=== PATIENT | female | born 1985 | race Caucasian/White ===

== ENCOUNTER 2023-10-18 00:18 | Emergency (ER) | payer OTHER, SELFPAY ==
[2023-10-18] VITALS (9 sets, daily range): BP systolic 110; BP diastolic 87; PULSE 72–103; RESP 15–16; TEMP 36.4; O2SAT 94–100; BMI 28.3
--- NOTE | 2023-10-18 00:24 | ED_ITS ---
HPI - Abdominal Pain 2 General: Chief Complaint: Abdominal Pain Stated Complaint: abd pain Time Seen by Provider: 10/18/23 00:19 Source: patient Mode of arrival: ambulatory Limitations: no limitations History of Present Illness: 38-year-old female states she been havin g lower abdominal pain has been crampy in nature of the last 4 hours states she is also had vomiting and diarrhea with this. She denies any worse improved factors she denies any fever she rates her pain a 5 out of 10 currently. Associated Symptoms: Reports diarrhea, nausea and vomiting; Denies chills, dysuria and fever(s) Review of Systems 2 Const: Denies: fever(s), chills, body aches or change in appetite ENMT: Denies: throat pain or dental pain Card: Denies: chest pain Resp: Denies: dyspnea GI: Reports: abdominal pain, nausea, vomiting and diarrhea : Denies: dysuria Musc: Denies: neck pain or back pain Skin/Breast: Denies: rash Neuro: Denies: headache(s) Physical Exam 2 Const: COMMON NORMALS: no acute distress, patient oriented x3 and healthy appearing HENMT: COMMON NORMALS: normocephalic and atraumatic HEAD & SCALP: n ormocephalic and atraumatic Eye: COMMON NORMALS: conjunctivae normal CONJUNCTIVA: Yes conjunctivae normal Neck/C-Spine: COMMON NORMALS: full ROM and supple Chest: COMMONS NORMALS: normal inspection of the chest Resp: COMMON NORMALS: normal respiratory effort Cardio: COMMON NORMALS: regular rate RATE: regular rate GI: COMMON NORMALS: Normal to inspection, nondistended, normoactive bowel sounds present, Soft to palpation and no masses PALPATION: Yes Soft to palpation OTHER: lower abd tenderness Extremity: COMMON NORMALS: normal to inspection and full ROM Neuro: COMMON NORMALS: patient oriented x3, moves all extremities and no focal motor deficits Psych: COMMON NORMALS: mental status grossly normal, Normal thought process present and cooperative THOUGHT PROCESS: Normal thought process present Skin: COMMON NORMALS: no rashes or lesions noted and no wounds GENERAL SKIN EXAM: no rashes or lesions noted Course 2 Vital Signs: Vital signs: Vital Signs Temperature 97.5 F L 10/18/23 00:22 Pulse Rate 72 10/18/23 03:38 Respiratory Rate 15 10/18/23 03:38 Blood Pressure 110/87 10/18/23 00:27 Pulse Oximetry 96 10/18/23 03:38 Oxygen Delivery Me thod Room Air 10/18/23 00:57 MDM - Abdominal Pain Medical Decision Making Patient presents here with likely colitis. Her pain is much improved here abdominal exam at discharge benign we will place her on Cipro Flagyl she is follow-up with PCP return if worsening she understands agrees to plan Medical Records I reviewed the patient's medical records. Lab Data I reviewed the patient's lab results. 10/18/23 00:01 10/18/23 00:01 Labs/Radiology: Radiology Impressions Abdomen/Pelvis CT 10/18/23 01:19 IMPRESSION: 1. Findings compatible with some form of colitis, see above discussion. 2. No free air or significant bowel distention. 3. The gallbladder appears borderline prominent in size, no visible gallstones by CT. 4. Normal appendix. 5. The left ovary contains a 20 x 13 x 15 mm dominant follicle versus small collapsing cyst. Small amount of cul-de-sac fluidand right upper pelvic fluid. 6. Other findings discussed above. Laboratory Results WBC 19.37 10^3/uL (3.29-11.43) H 10/18/23 00:01 RBC 5.13 10^6/uL (3.85-5.65) 10/18/23 00:01 Hgb 15.10 g/dL (11.27-16.99) 10/18/23 00:01 Hct 46.0 % (36-47) 10/18/23 00:01 MCV 89.7 fl (85-98) 10/18/23 00:01 MCH 29.4 pg (27-33) 10/18/23 00:01 MCHC 32.8 g/dL (30-55) 10/18/23 00:01 RDW 13.6 % (12.1-15.1) 10/18/23 00:01 Plt Count 290 10^3/cmm (157-399) 10/18/23 00:01 MPV 10.7 fL (7.4-10.4) H 10/18/23 00:01 Neut % (Auto) 81.0 % 10/18/23 00:01 Lymph % (Auto) 9.7 % 10/18/23 00:01 [place] % (Auto) 8.2 % 10/18/23 00:01 Eos % (Auto) 0.5 % 10/18/23 00:01 Baso % (Auto) 0.3 % 10/18/23 00:01 Neut # (Auto) 15.72 10^3/uL (1.8-7.7) H 10/18/23 00:01 Lymph # (Auto) 1.9 10^3/uL (0.8-4.8) 10/18/23 00:01 [place] # (Auto) 1.6 10^3/uL (0.2-0.9) H 10/18/23 00:01 Eos # (Auto) 0.1 10^3/uL (0.0-0.8) 10/18/23 00:01 Baso # (Auto) 0.1 10^3/uL (0.0-0.1) 10/18/23 00:01 Nucleated RBC % (auto) 0 % 10/18/23 00:01 Nucleated RBCs # 0.0 /100WBC 10/18/23 00:01 Sodium 139 mmol/L (136-145) 10/18/23 00:01 Potassium 3.7 mmol/L (3.5-5.1) 10/18/23 00:01 Chloride 103 mmol/L (98-107) 10/18/23 00:01 Carbon Dioxide 26 mmol/L (22-29) 10/18/23 00:01 Anion Gap 13.7 (5-19) 10/18/23 00:01 BUN 18 mg/dL (6-20) 10/18/23 00:01 Creatinine 0.9 mg/dL (0.5-0.9) 10/18/23 00:01 GFR Calculation 70.5 mL/min (90-130) L 10/18/23 00:01 Glucose 162 mg/dL (65-115) H 10/18/23 00:01 Calculated Osmolality 293 mOsm/kg (285-295) 10/18/23 00:01 Calcium 10.3 mg/dL (8.5-10.5) 10/18/23 00:01 Total Bilirubin 0.4 mg/dL (0.15-1.2) 10/18/23 00:01 AST 23 U/L (0-32) 10/18/23 00:01 ALT 25 U/L (0-33) 10/18/23 00:01 Alkaline Phosphatase 72 U/L (35-105) 10/18/23 00:01 Total Protein 7.5 g/dL (6.6-8.7) 10/18/23 00:01 Albumin 4.4 g/dL (3.5-5.2) 10/18/23 00:01 Globulin 3.1 g/dL (1.3-4.6) 10/18/23 00:01 Lipase 32 U/L (13-60) 10/18/23 00:01 HCG, Qual Negative (Negative) 10/18/23 00:01 Urine Color Dark yellow (Yellow) 10/18/23 01:40 Urine Appearance Clear (CLEAR) 10/18/23 01:40 Urine pH 5 (5-7) 10/18/23 01:40 Ur Specific [place] 1.015 (1.005-1.030) 10/18/23 01:40 Urine Protein Neg (Negative) 10/18/23 01:40 Urine Glucose (UA) Norm (Normal) 10/18/23 01:40 Urine Ketones 1+ (Negative) H 10/18/23 01:40 Urine Blood Neg (Negative) 10/18/23 01:40 Urine Nitrate Negative (Negative) 10/18/23 01:40 Urine Bilirubin 1+ (Negative) H 10/18/23 01:40 Urine Urobilinogen 4 mg/dL (Negative) H 10/18/23 01:40 Ur Leukocyte Esterase Trace (Negative) H 10/18/23 01:40 Urine RBC None /hpf (0-2) 10/18/23 01:40 Urine WBC 0-4 /hpf (0-5) H 10/18/23 01:40 Ur Squamous Epith Cells 10-15 /hpf (0-5) H 10/18/23 01:40 Amorphous Sediment Not Reportable 10/18/23 01:40 Urine Bacteria 1+ /hpf (NONE) H 10/18/23 01:40 All radiology interpretation(s) finalized by discharge Discharge Plan Discharge Patient Disposition: Home Clinical Impression: Colitis Condition: Stable Prescriptions: New hydrocodone-acetaminophen 5-325 mg tablet 1 tab PO Q6H PRN (Reason: pain) Qty: 14 0RF metronidazole 500 mg tablet 500 mg PO Q8H 7 Days Qty: 21 0RF Cipro 500 mg tablet 500 mg PO BID Qty: 14 0RF ondansetron 4 mg tablet,disintegrating 4 mg PO Q6H PRN (Reason: nausea and vomiting) Qty: 14 0RF Discharge Orders: Discharge ED (Routine); Ordered 10/18/23 Ordered By: Mary Haley Referrals: Nuno Cavanaugh [Referring] - 1-3 days Nuno Martinez Jr, MD [Staff Physician] - Discharge Diet: Advance as tolerated Discharge Activity: Resume usual activity Patient Instructions: Colitis (ED), Opioid Safety Coding Level of Care Code ED 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
[2023-10-18 00:33] LABS: Basophils # 0.1 10^3/uL (0.0-0.1); Basophils % 0.3 %; Eosinophils # 0.1 10^3/uL (0.0-0.8); Eosinophils % 0.5 %; Lymphocytes # 1.9 10^3/uL (0.8-4.8); Lymphocytes % 9.7 %; Mean Corpuscular HGB Conc 32.8 g/dL (30-55); Mean Corpuscular Hemoglobin 29.4 pg (27-33); Mean Corpuscular Volume 89.7 fl (85-98); Mean Platelet Volume 10.7 fL (7.4-10.4); Monocytes # 1.6 10^3/uL (0.2-0.9); Monocytes % 8.2 %; Neutrophils # 15.72 10^3/uL (1.8-7.7); Nucleated Red Blood Cells % 0 %; Platelet Count 290 10^3/cmm (157-399); Red Blood Count 5.13 10^6/uL (3.85-5.65); Red Cell Distribution Width 13.6 % (12.1-15.1); White Blood Count 19.37 10^3/uL (3.29-11.43)
[2023-10-18] MEDS: ondansetron 2 mg/ML SDV 2 mL 4 MG IVP (00:39)
[2023-10-18] MEDS: morphine 4 mg/mL SDV 1 mL IVP (00:40)
[2023-10-18] MEDS: sodium chloride 0.9% 1,000 ML 999 ML IV (00:41)
[2023-10-18 00:43] LABS: HCG, Serum Qual Negative (Negative)
[2023-10-18 00:53] LABS: Alanine Aminotransferase 25 U/L (0-33); Albumin Level 4.4 g/dL (3.5-5.2); Alkaline Phosphatase 72 U/L (35-105); Anion Gap 13.7 (5-19); Aspartate Amino Transferase 23 U/L (0-32); Blood Urea Nitrogen 18 mg/dL (6-20); Calcium 10.3 mg/dL (8.5-10.5); Carbon Dioxide 26 mmol/L (22-29); Chloride 103 mmol/L (98-107); Creatinine Clr Calc Pharmacy 81.6998; Globulin 3.1 g/dL (1.3-4.6); Glomerular Filtration Rate 70.5 mL/min (90-130); Glucose 162 mg/dL (65-115); Lipase 32 U/L (13-60); Osmolality Calculated 293 mOsm/kg (285-295); Potassium 3.7 mmol/L (3.5-5.1); Sodium 139 mmol/L (136-145); Total Bilirubin 0.4 mg/dL (0.15-1.2); Total Protein 7.5 g/dL (6.6-8.7)
--- NOTE | 2023-10-18 01:19 | CTR_ITS ---
PROCEDURE INFORMATION: Exam: CT Abdomen And Pelvis With Contrast Exam date and time: 10/18/2023 1:27 AM Age: 38 years old Clinical indication: Abdominal pain; Additional info: Abd pain TECHNIQUE: Imaging protocol: Computed tomography of the abdomen and pelvis with contrast. Radiation optimization: All CT scans at this facility use at least one of these dose optimization techniques: automated exposure control; mA and/or kV adjustment per patient size (includes targeted exams where dose is matched to clinical indication); or iterative reconstruction. Contrast material: OMNI 350; Contrast volume: 100 ml; Contrast route: INTRAVENOUS (IV); COMPARISON: No relevant prior studies available. RADIATION DOSE METRICS: Total DLP (mGy-cm): 561.2 FINDINGS: Lungs: The lung bases are clear. Liver: There is a very small 2-3 mm low attenuation area in the anterior left lobe of the liver. The appearance is nonspecific, but statistically this most likely represents a small cyst or cavernous hemangioma. Gallbladder and bile ducts: The gallbladder appears borderline prominent in size, transverse diameter of about 4 cm. No visible gallstones by CT. Ultrasound would be more sensitive for detecting gallstones, if clinically needed. No definite pericholecystic fluid or inflammatory changes. No significant biliary tree dilation. Pancreas: Unremarkable. Spleen: Unremarkable. Adrenal glands: Unremarkable. Kidneys and ureters: Unremarkable. Stomach and bowel: No significant bowel distention. There appears to be mild to moderate diffuse mucosal/wall thickening involving predominantly the hepatic flexure through descending colon. The findings are most prominent in the transverse colon. While nonspecific, this appearance is likely secondary to some form of colitis, including infectious, inflammatory, and pseudomembranous colitis. Please correlate clinically. There are no CT findings to strongly suggest diverticulitis. Appendix: The appendix is visualized and appears normal. Intraperitoneal space: No free intraperitoneal air, or generalized ascites. Vasculature: No evidence for abdominal aortic aneurysm. Lymph nodes: No retroperitoneal adenopathy. Urinary bladder: No visible calculus in the urinary bladder. Reproductive: An IUD is present within the uterus. The left ovary contains a 20 x 13 x 15 mm dominant follicle versus small collapsing cyst. Significance uncertain due to relatively small size. Small amount of cul-de-sac fluid, and a small amount of additional fluid in the lower right paracolic gutter. Bones/joints: No significant acute finding. Soft tissues: No significant acute finding. CT/CT abdomen pelvis w con* [id number] IMPRESSION: 1. Findings compatible with some form of colitis, see above discussion. 2. No free air or significant bowel distention. 3. The gallbladder appears borderline prominent in size, no visible gallstones by CT. 4. Normal appendix. 5. The left ovary contains a 20 x 13 x 15 mm dominant follicle versus small collapsing cyst. Small amount of cul-de-sac fluidand right upper pelvic fluid. 6. Other findings discussed above.
[2023-10-18] MEDS: iohexol 350 mg/mL 500 mL Btl (per mL) IV (01:29)
[2023-10-18 02:30] LABS: Add Urine Culture? No; Add Urine Microscopic? YES; Bacteria Urine 1+ /hpf; Bilirubin Urine 1+ (Negative); Blood Urine Neg (Negative); Glucose Urine UA Norm (Normal); Ketones Urine 1+ (Negative); Leukocyte Esterase Urine Trace (Negative); Nitrate Urine Negative (Negative); Protein Urine Neg (Negative); Specific Gravity, Urine 1.015 (1.005-1.030); Urine Appearance Clear (CLEAR); Urine Color Dark Yellow (Yellow); Urobilinogen Urine 4 mg/dL (Negative); WBC Urine 0-4 /hpf (0-5); pH Urine 5 (5-7)
== END 2023-10-18 03:35 | disposition home or self-care (01) ==
PROVIDERS: Emergency Provider Emergency Medicine
DX: K52.9 Noninfective gastroenteritis and colitis, unspecified (principal)
CPT/HCPCS: 74177; 80053; 81001; 83690; 84703; 85025; 96361; 96374; 96375; 99285; J2270; J2405; J7030; Q9967

== ENCOUNTER 2024-01-17 11:29 | Emergency (ER) | payer OTHER, SELFPAY ==
--- NOTE | 2024-01-17 11:35 | XR_ITS ---
WS: [id number] Portable AP upright chest, 01/17/2024 Clinical Data: cp Comparison: Two-view chest, 06/04/2016. Findings: No nodules, masses or effusions are seen. The heart is normal. The pulmonary vascularity is not increased. No pneumonia or pneumothorax is seen. XR/XR chest 1V portable [id number] Impression: Negative chest.
--- NOTE | 2024-01-17 11:35 | ECG_ITS ---
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 Measurements Intervals [place] Rate: 84 P: 66 CO: 153 QRS: 64 QRSD: 82 T: 50 QT: 376 QTc: 446 Interpretive Statements SINUS RHYTHM POSSIBLE LEFT ATRIAL ENLARGEMENT [-0.1mV P-WAVE IN V1/V2] No previous ECG available for comparison Electronically Signed On 01-17-2024 15:34:30 CDT by Darío Yen M.D. [id number]
[2024-01-17 11:47] VITALS: BP 109/73; PULSE 85; RESP 16; TEMP 36.9; O2SAT 99; BMI 28.3
[2024-01-17 11:50] LABS: Basophils % 0.4 %; Eosinophils # 0.1 10^3/uL (0.0-0.8); Eosinophils % 0.9 %; Hematocrit 41.8 % (36-47); Lymphocytes # 1.6 10^3/uL (0.8-4.8); Lymphocytes % 16.8 %; Mean Corpuscular HGB Conc 32.8 g/dL (30-55); Mean Corpuscular Hemoglobin 30.6 pg (27-33); Mean Corpuscular Volume 93.3 fl (85-98); Mean Platelet Volume 9.8 fL (7.4-10.4); Monocytes # 0.7 10^3/uL (0.2-0.9); Monocytes % 7.6 %; Neutrophils # 6.79 10^3/uL (1.8-7.7); Neutrophils % 73.8 %; Nucleated Red Blood Cells % 0 %; Platelet Count 301 10^3/cmm (157-399); Red Blood Count 4.48 10^6/uL (3.85-5.65); Red Cell Distribution Width 14.2 % (12.1-15.1); White Blood Count 9.21 10^3/uL (3.29-11.43)
[2024-01-17 12:05] LABS: HCG, Serum Qual Negative (Negative)
[2024-01-17 12:06] LABS: Alanine Aminotransferase 19 U/L (0-33); Alkaline Phosphatase 67 U/L (35-105); Anion Gap 13.9 (5-19); Aspartate Amino Transferase 13 U/L (0-32); Blood Urea Nitrogen 9 mg/dL (6-20); Calcium 8.9 mg/dL (8.5-10.5); Carbon Dioxide 28 mmol/L (22-29); Chloride 107 mmol/L (98-107); Creatinine Clr Calc Pharmacy 105.0426; Globulin 2.7 g/dL (1.3-4.6); Glomerular Filtration Rate 94.2 mL/min (90-130); Glucose 94 mg/dL (65-115); Lipase 39 U/L (13-60); Osmolality Calculated 298 mOsm/kg (285-295); Potassium 3.9 mmol/L (3.5-5.1); Sodium 145 mmol/L (136-145); Total Bilirubin 0.3 mg/dL (0.15-1.2); Total Protein 6.7 g/dL (6.6-8.7)
--- NOTE | 2024-01-17 12:25 | ED_ITS ---
HPI - Abdominal Pain 2 General: Chief Complaint: Abdominal Pain Stated Complaint: n/v chest pain when coughing, etc Time Seen by Provider: 01/17/24 11:52 History of Present Illness: 38-year-old female presents to the emerg ency room complaining of chest pain with coughing. It is worse when she coughs or takes deep breaths. She has had some diarrhea as well. Most of the pain is in the epigastric area and in the left ribs. Cough has been nonproductive no hemoptysis. She denies shortness of breath. No trauma. Associated Symptoms: Denies chills, dysuria, fever(s), hematochezia, hematemesis, melena, nausea and vomiting Review of Systems 2 Const: Denies: fever(s) or chills Card: Denies: chest pain Resp: Reports: non-productive cough; Denies: dyspnea, wheezing, hemoptysis or chest congestion GI: Reports: abdominal pain; Denies: nausea, vomiting, hematemesis, hematochezia or melena : Denies: dysuria, urinary frequency or urinary urgency Musc: Denies: neck pain or back pain Skin/Breast: Denies: rash PFSH ED 2 PFSH: Medical History Psychiatric care Physical Exam 2 Const: COMMON NORMALS: no acute distress GENERAL APPEARANCE: cooperative and comfortable ORIENTATION/CONSCIOUSNESS: Yes awake, Yes oriented to person, Yes oriented to place and Yes oriented to time HENMT: COMMON NORMALS: normocephalic, atraumatic and hearing grossly normal bilaterally HEAD & SCALP: normocephalic and atraumatic Resp: COMMON NORMALS: normal respiratory effort, No retractions, No use of accessory muscles and clear to auscultation bilaterally AUSCULTATION: clear to auscultation bilaterally Cardio: COMMON NORMALS: regular rate, regular rhythm and No murmurs present (Cardio) RATE: regular rate RHYTHM: regular rhythm GI: COMMON NORMALS: Soft to palpation and No hepatosplenomegaly present A USCULTATION: Yes normoactive bowel sounds PALPATION: Yes Soft to palpation, No Tenderness to palpation present (GI), No Guarding due to palpation present (GI) and Yes No hepatosplenomegaly present Extremity: COMMON NORMALS: normal to inspection, capillary refill normal, no clubbing, cyanosis or edema, no calf tenderness and no pedal edema Neuro: SENSORIUM/ORIENTATION: Yes oriented to person, Yes oriented to place and Yes oriented to time Skin: COMMON NORMALS: no rashes or lesions noted GENERAL SKIN EXAM: no rashes or lesions noted Course 2 Vital Signs: Vital signs: Vital Signs Temperature 98.4 F 01/17/24 11:47 Pulse Rate 77 01/17/24 14:08 Respiratory Rate 18 01/17/24 14:08 Blood Pressure 143/71 01/17/24 14:08 Pulse Oximetry 98 01/17/24 14:08 Oxygen Delivery Me thod Room Air 01/17/24 14:07 MDM - Abdominal Pain Medical Decision Making Patient appears to have reflux. Chest x-ray unremarkable EKG negative showed normal sinus rhythm without acute ST changes rate. Incidental notation of a bladder infection we did call lab to verify the list both squamous and white cells is being 11-20. They confirmed that. Discharge patient home started on pantoprazole 40 twice daily for 10 days then 40 [address] will place her on Macrobid 100 mg twice daily for 7 days. Recheck for any worsening or changes symptoms persist follow-up with her primary care doctor for possible further evaluation including EGD. If there are any respiratory symptoms changes return. Lab Data 01/17/24 11:44 01/17/24 11:44 Labs/Radiology: Radiology Impressions Chest X-Ray 01/17/24 11:35 Impression: Negative chest. Laboratory Results WBC 9.21 10^3/uL (3.29-11.43) 01/17/24 11:44 RBC 4.48 10^6/uL (3.85-5.65) 01/17/24 11:44 Hgb 13.70 g/dL (11.27-16.99) 01/17/24 11:44 Hct 41.8 % (36-47) 01/17/24 11:44 MCV 93.3 fl (85-98) 01/17/24 11:44 MCH 30.6 pg (27-33) 01/17/24 11:44 MCHC 32.8 g/dL (30-55) 01/17/24 11:44 RDW 14.2 % (12.1-15.1) 01/17/24 11:44 Plt Count 301 10^3/cmm (157-399) 01/17/24 11:44 MPV 9.8 fL (7.4-10.4) 01/17/24 11:44 Neut % (Auto) 73.8 % 01/17/24 11:44 Lymph % (Auto) 16.8 % 01/17/24 11:44 [place] % (Auto) 7.6 % 01/17/24 11:44 Eos % (Auto) 0.9 % 01/17/24 11:44 Baso % (Auto) 0.4 % 01/17/24 11:44 Neut # (Auto) 6.79 10^3/uL (1.8-7.7) 01/17/24 11:44 Lymph # (Auto) 1.6 10^3/uL (0.8-4.8) 01/17/24 11:44 [place] # (Auto) 0.7 10^3/uL (0.2-0.9) 01/17/24 11:44 Eos # (Auto) 0.1 10^3/uL (0.0-0.8) 01/17/24 11:44 Baso # (Auto) 0.0 10^3/uL (0.0-0.1) 01/17/24 11:44 Nucleated RBC % (auto) 0 % 01/17/24 11:44 Nucleated RBCs # 0.0 /100WBC 01/17/24 11:44 Sodium 145 mmol/L (136-145) 01/17/24 11:44 Potassium 3.9 mmol/L (3.5-5.1) 01/17/24 11:44 Chloride 107 mmol/L (98-107) 01/17/24 11:44 Carbon Dioxide 28 mmol/L (22-29) 01/17/24 11:44 Anion Gap 13.9 (5-19) 01/17/24 11:44 BUN 9 mg/dL (6-20) 01/17/24 11:44 Creatinine 0.7 mg/dL (0.5-0.9) 01/17/24 11:44 GFR Calculation 94.2 mL/min (90-130) 01/17/24 11:44 Glucose 94 mg/dL (65-115) 01/17/24 11:44 Calculated Osmolality 298 mOsm/kg (285-295) H 01/17/24 11:44 Calcium 8.9 mg/dL (8.5-10.5) 01/17/24 11:44 Total Bilirubin 0.3 mg/dL (0.15-1.2) 01/17/24 11:44 AST 13 U/L (0-32) 01/17/24 11:44 ALT 19 U/L (0-33) 01/17/24 11:44 Alkaline Phosphatase 67 U/L (35-105) 01/17/24 11:44 Total Protein 6.7 g/dL (6.6-8.7) 01/17/24 11:44 Albumin 4.0 g/dL (3.5-5.2) 01/17/24 11:44 Globulin 2.7 g/dL (1.3-4.6) 01/17/24 11:44 Lipase 39 U/L (13-60) 01/17/24 11:44 HCG, Qual Negative (Negative) 01/17/24 11:44 Urine Color Yellow (Yellow) 01/17/24 12:37 Urine Appearance Turbid (CLEAR) A 01/17/24 12:37 Urine pH 8.0 (5-7) A 01/17/24 12:37 Ur Specific [place] 1.018 (1.005-1.030) 01/17/24 12:37 Urine Protein Negative (Negative) 01/17/24 12:37 Urine Glucose (UA) Negative (Normal) 01/17/24 12:37 Urine Ketones Negative (Negative) 01/17/24 12:37 Urine Blood Negative (Negative) 01/17/24 12:37 Urine Nitrate Negative (Negative) 01/17/24 12:37 Urine Bilirubin Negative (Negative) 01/17/24 12:37 Urine Urobilinogen 1.0 mg/dL (Negative) 01/17/24 12:37 Ur Leukocyte Esterase 1+ (Negative) A 01/17/24 12:37 Urine RBC 0-2 /hpf (0-2) 01/17/24 12:37 Urine WBC 11-20 /hpf (0-5) H 01/17/24 12:37 Ur Squamous Epith Cells 11-20 /hpf (0-5) 01/17/24 12:37 Amorphous Sediment Not Reportable 01/17/24 12:37 Urine Bacteria 1+ /hpf (NONE) H 01/17/24 12:37 Hyaline Casts 1.65 /lpf 01/17/24 12:37 All radiology interpretation(s) finalized by discharge Discharge Plan Discharge Patient Disposition: Home Clinical Impression: GERD (gastroesophageal reflux disease), Cystitis Condition: Stable Prescriptions: New Protonix 40 mg tablet,delayed release (DR/EC) 40 mg PO BID 30 Days Qty: 60 0RF Rx Instructions: 1 pill twice a day for 10 days then once daily Macrobid 100 mg capsule 100 mg PO BID 7 Days Qty: 14 0RF Rx Instructions: must administer with a meal/food No Action fluoxetine 40 mg capsule 40 mg PO DAILY cyclobenzaprine 10 mg tablet 10 mg PO BEDTIME PRN (Reason: MUSCLE SPASMS) meloxicam 15 mg tablet 15 mg PO DAILY cimetidine 300 mg tablet 300 mg PO BID hydrocodone-acetaminophen 10-325 mg tablet 1 tab PO Q8H PRN (Reason: Pain, Moderate) levothyroxine 50 mcg tablet 50 mcg PO QAM dextroamphetamine-amphetamine 10 mg capsule,extended release 24hr 10 mg PO DAILY montelukast 10 mg tablet 10 mg PO DAILY hydroxyzine HCl 25 mg tablet 25 mg PO BEDTIME dextroamphetamine-amphetamine 30 mg capsule,extended release 24hr 30 mg PO QAM pregabalin 75 mg capsule 75 mg PO Q12H Discharge Orders: Discharge ED (Routine); Ordered 01/17/24 Ordered By: Braxton Viveros Referrals: ANUM BURDEN MD [Primary Care Provider] - Discharge Diet: As Directed Discharge Activity: Resume usual activity Patient Instructions: Diet for Stomach Ulcers and Gastritis (ED), GERD (Gastroesophageal Reflux Disease) (ED), Opioid Safety, Pain Management Activity Restrictions/Additional Instructions: Thank you for choosing [facility] for your healthcare needs today. It is very important that you follow up as instructed or that you return to the Emergency Department should you have concerns or if your condition changes or worsens in any way. You were seen in the emergency room complaining of abdominal pain. Laboratory test did not show any sign of active bleeding ulcer. Urine did show possibility of slight cystitis recommend he start on oral antibiotic 1 pill twice a day for that. Suspect that your epigastric pain is due to reflux and overproduction of acid in the stomach recommend that you stop the cimetidine and start on pantoprazole 40 mg twice a day for 10 days then once daily. 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
[2024-01-17 12:45] LABS: Charge for UA Resulting for Rev
[2024-01-17 12:48] LABS: Bilirubin Urine Negative (Negative); Blood Urine Negative (Negative); Glucose Urine UA Negative (Normal); Ketones Urine Negative (Negative); Leukocyte Esterase Urine 1+ (Negative); Nitrate Urine Negative (Negative); Protein Urine Negative (Negative); Specific Gravity, Urine 1.018 (1.005-1.030); Urine Appearance Turbid (CLEAR); Urine Color Yellow (Yellow)
[2024-01-17 12:50] LABS: Bacteria Urine 1+ /hpf; Hyaline Casts Urine 1.65 /lpf; RBC Urine 0-2 /hpf (0-2)
[2024-01-17 12:53] LABS: Add Urine Culture? No
[2024-01-17 14:07] VITALS: BP 143/71; PULSE 77; RESP 18; O2SAT 98
[2024-01-17 14:08] VITALS: BP 143/71; PULSE 77; RESP 18; O2SAT 98
== END 2024-01-17 14:09 | disposition home or self-care (01) ==
PROVIDERS: Emergency Medicine; Emergency Provider Family Medicine; PCP Family Medicine
DX: K21.9 Gastro-esophageal reflux disease without esophagitis (principal); N30.90 Cystitis, unspecified without hematuria
CPT/HCPCS: 36415; 71045; 80053; 81003; 81015; 83690; 84703; 85025; 93005; 99285

== ENCOUNTER → 2024-05-01 09:07 | Outpatient (BNVA) | payer OTHER, SELFPAY | PROVIDERS: PCP Family Medicine; Visit Provider Nurse Practitioner Psychiatric/Mental Health | DX: Z79.899 Other long term (current) drug therapy | CPT/HCPCS: 80307 ==

== ENCOUNTER 2024-08-21 07:23 | Emergency (ER) | payer OTHER, SELFPAY ==
[2024-08-21 07:29] VITALS: BP 136/71; PULSE 93; RESP 16; TEMP 36.8; O2SAT 99; BMI 30.1
--- NOTE | 2024-08-21 07:29 | ECG_ITS ---
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 Measurements Intervals [place] Rate: 79 P: 66 [place]: 153 QRS: 73 QRSD: 84 T: 62 QT: 395 QTc: 455 Interpretive Statements SINUS RHYTHM Compared to ECG 01/17/2024 11:51:49 No significant changes Electronically Signed On 08-23-2024 18:06:26 CAREER TECHNICAL EDUCATION INSTRUCTOR by Darío Yen M.D. [id number]
--- NOTE | 2024-08-21 07:58 | W.ED.SYNCOPE ---
HPI - Syncope General: Chief Complaint: Syncope Stated Complaint: Syncope Time Seen by Provider: 08/21/24 07:58 History of Present Illness: 31-year-old female reported history of benign cranial hypertension based on MRI done 2 months ago had a syncopal episode this morning when she bent over. She has a referral to neurosurgery at [place] next month. She has been having increasing headaches the last few weeks. She is not currently on any medications specific to her intracranial hypertension. Associated symptoms: Deny abdominal pain, chest pain or fever(s) Related Data Home Medications ?Medication ?Instructions ?Recorded ?Confirmed cyclobenzaprine 10 mg tablet 10 mg PO BEDTIME PRN MUSCLE SPASMS 01/17/24 08/21/24 hydrocodone 10 mg-acetaminophen 1 tab PO Q8H PRN Pain, Moderate 01/17/24 08/21/24 325 mg tablet levothyroxine 50 mcg tablet 50 mcg PO QAM 01/17/24 08/21/24 pregabalin 75 mg capsule 75 mg PO Q12H 01/17/24 08/21/24 cetirizine 10 mg tablet (Zyrtec) 10 mg PO DAILY 02/14/24 08/21/24 cholecalciferol (vitamin D3) 50 4,000 unit PO DAILY 02/14/24 08/21/24 mcg (2,000 unit) capsule cimetidine 300 mg tablet 300 mg PO DAILY 02/14/24 08/21/24 meloxicam 15 mg tablet 15 mg PO DAILY PRN Pain 02/14/24 08/21/24 multivitamin 1 tab PO DAILY 02/14/24 08/21/24 pantoprazole 40 mg tablet,delayed 40 mg PO DAILY heartburn 05/01/24 08/21/24 release vitamin B complex 1 tab PO DAILY 08/04/24 08/21/24 Previous Rx's ?Medication ?Instructions ?Recorded hydroxyzine HCl 25 mg tablet 25 mg PO BEDTIME PRN anxiety #30 06/03/24 tabs dextroamphetamine-amphetamine ER 60 mg (2 x 30 mg) PO QAM 30 days 08/01/24 30 mg 24hr capsule,extend release #60 caps (Adderall XR) fluoxetine 20 mg capsule (Prozac) 20 mg PO .morning #30 caps 08/04/24 fluoxetine 40 mg capsule 40 mg PO .morning #30 caps 08/04/24 Allergies Allergy/AdvReac Type Severity Reaction Status Date / Time Sulfa (Sulfonamide Allergy ADR-Seizure Verified 07/04/24 08:02 Antibiotics) Review of Systems Const: Denies: fever(s) or chills Card: Denies: chest pain Resp: Denies: dyspnea GI: Denies: abdominal pain : Denies: dysuria, urinary frequency or urinary urgency Musc: Denies: neck pain or back pain Skin/Breast: Denies: rash PFSH ED PFSH: Medical History (Updated 08/21/24 @ 10:28 by Braxton Viveros, ) Nicotine dependence, cigarettes, uncomplicated Generalized anxiety disorder Major depressive disorder, recurrent severe without psychotic features ADHD (attention deficit hyperactivity disorder), inattentive type Psychiatric care Physical Exam Const: GENERAL APPEARANCE: cooperative ORIENTATION/CONSCIOUSNESS: Yes awake, Yes oriented to person, Yes oriented to place and Yes oriented to time HENMT: COMMON NORMALS: normocephalic, atraumatic and hearing grossly normal bilaterally HEAD & SCALP: normocephalic and atraumatic Resp: COMMON NORMALS: normal respiratory effort, No retractions, No use of accessory muscles and clear to auscultation bilaterally AUSCULTATION: clear to auscultation bilaterally Cardio: COMMON NORMALS: regular rate, regular rhythm and No murmurs present (Cardio) RATE: regular rate RHYTHM: regular rhythm GI: COMMON NORMALS: Soft to palpation and No hepatosplenomegaly present AUSCULTATION: Yes normoactive bowel sounds PALPATION: Yes Soft to palpation, No Tenderness to palpation present (GI), No Guarding due to palpation present (GI) and Yes No hepatosplenomegaly present Extremity: COMMON NORMALS: normal to inspection, capillary refill normal, no clubbing, cyanosis or edema, no calf tenderness and no pedal edema Neuro: SENSORIUM/ORIENTATION: Yes oriented to person, Yes oriented to place and Yes oriented to time Skin: COMMON NORMALS: no rashes or lesions noted GENERAL SKIN EXAM: no rashes or lesions noted Course Vital Signs: Vital signs: Vital Signs Temperature 98.2 F 08/21/24 07:29 Pulse Rate 78 08/21/24 11:20 Respiratory Rate 16 08/21/24 11:20 Blood Pressure 108/72 08/21/24 11:20 Pulse Oximetry 96 08/21/24 11:20 Oxygen Delivery Me thod Room Air 08/21/24 11:09 MDM - Syncope Medical Decision Making Patient is feeling better. She has had episodes like this before. There is a concern of intracranial hypertension she had an empty sella syndrome on an MRI no with dilation of the ventricles. CT today does not show any acute findings. She has follow-up with neurology in [place]. Suspect this morning's episode may have been precipitated by postural hypotension. Patient will be discharged home follow-up with your primary care. At this point I would not start patient on acetazolamide as I think would probably cause her more problems with side effects and benefits in the she does need to have the diagnosis confirmed with neurology. Reviewed with the patient. Headache is somewhat better she denies any vision symptoms at this time Medical Records I reviewed the patient's medical records. Lab Data I reviewed the patient's lab results. 08/21/24 07:56 08/21/24 07:[address] 08/21/24 08:03 IMPRESSION: Negative head CT. Laboratory Results WBC 7.39 10^3/uL (3.29-11.43) 08/21/24 07:56 RBC 4.63 10^6/uL (3.85-5.65) 08/21/24 07:56 Hgb 13.80 g/dL (11.27-16.99) 08/21/24 07:56 Hct 42.2 % (36-47) 08/21/24 07:56 MCV 91.1 fl (85-98) 08/21/24 07:56 MCH 29.8 pg (27-33) 08/21/24 07:56 MCHC 32.7 g/dL (30-55) 08/21/24 07:56 RDW 13.4 % (12.1-15.1) 08/21/24 07:56 Plt Count 321 10^3/cmm (157-399) 08/21/24 07:56 MPV 9.8 fL (7.4-10.4) 08/21/24 07:56 Neut % (Auto) 63.4 % 08/21/24 07:56 Lymph % (Auto) 26.3 % 08/21/24 07:56 [place] % (Auto) 8.5 % 08/21/24 07:56 Eos % (Auto) 1.1 % 08/21/24 07:56 Baso % (Auto) 0.4 % 08/21/24 07:56 Neut # (Auto) 4.69 10^3/uL (1.8-7.7) 08/21/24 07:56 Lymph # (Auto) 1.9 10^3/uL (0.8-4.8) 08/21/24 07:56 [place] # (Auto) 0.6 10^3/uL (0.2-0.9) 08/21/24 07:56 Eos # (Auto) 0.1 10^3/uL (0.0-0.8) 08/21/24 07:56 Baso # (Auto) 0.0 10^3/uL (0.0-0.1) 08/21/24 07:56 Nucleated RBC % (auto) 0 % 08/21/24 07:56 Nucleated RBCs # 0.0 /100WBC 08/21/24 07:56 Sodium 145 mmol/L (136-145) 08/21/24 07:56 Potassium 4.9 mmol/L (3.5-5.1) 08/21/24 07:56 Chloride 105 mmol/L (98-107) 08/21/24 07:56 Carbon Dioxide 29 mmol/L (22-29) 08/21/24 07:56 Anion Gap 15.9 (5-19) 08/21/24 07:56 BUN 10 mg/dL (6-20) 08/21/24 07:56 Creatinine 0.9 mg/dL (0.5-0.9) 08/21/24 07:56 GFR Calculation 70.1 mL/min (90-130) L 08/21/24 07:56 Glucose 117 mg/dL (65-115) H 08/21/24 07:56 Calculated Osmolality 300 mOsm/kg (285-295) H 08/21/24 07:56 Calcium 9.1 mg/dL (8.5-10.5) 08/21/24 07:56 Total Bilirubin 0.3 mg/dL (0.15-1.2) 08/21/24 07:56 AST 19 U/L (0-32) 08/21/24 07:56 ALT 22 U/L (0-33) 08/21/24 07:56 Alkaline Phosphatase 78 U/L (35-105) 08/21/24 07:56 Total Protein 7.1 g/dL (6.6-8.7) 08/21/24 07:56 Albumin 4.0 g/dL (3.5-5.2) 08/21/24 07:56 Globulin 3.1 g/dL (1.3-4.6) 08/21/24 07:56 HCG, Qual Negative (Negative) 08/21/24 07:56 Urine Color Yellow (Yellow) 08/21/24 09:35 Urine Appearance Clear (CLEAR) 08/21/24 09:35 Urine pH 6.0 (5-7) 08/21/24 09:35 Ur Specific [place] 1.016 (1.005-1.030) 08/21/24 09:35 Urine Protein Negative (Negative) 08/21/24 09:35 Urine Glucose (UA) Negative (Normal) 08/21/24 09:35 Urine Ketones Negative (Negative) 08/21/24 09:35 Urine Blood Negative (Negative) 08/21/24 09:35 Urine Nitrate Negative (Negative) 08/21/24 09:35 Urine Bilirubin Negative (Negative) 08/21/24 09:35 Urine Urobilinogen 0.2 mg/dL (Negative) 08/21/24 09:35 Ur Leukocyte Esterase 1+ (Negative) A 08/21/24 09:35 Urine RBC 0-4 /hpf (0-2) H 08/21/24 09:35 Urine WBC 5-10 /hpf (0-5) H 08/21/24 09:35 Ur Squamous Epith Cells 10-15 /hpf (0-5) H 08/21/24 09:35 Amorphous Sediment Not Reportable 08/21/24 09:35 Urine Bacteria Trace /hpf (NONE) 08/21/24 09:35 Hyaline Casts 0-4 /lpf H 08/21/24 09:35 All radiology interpretation(s) finalized by discharge Discharge Plan Discharge Patient Disposition: Home Clinical Impression: Syncope due to orthostatic hypotension, Headache Condition: Stable Prescriptions: No Action cetirizine [Zyrtec] 10 mg tablet 10 mg PO DAILY cholecalciferol (vitamin D3) 50 mcg (2,000 unit) capsule 4,000 unit PO DAILY multivitamin Tablet 1 tab PO DAILY pantoprazole 40 mg tablet,delayed release (DR/EC) 40 mg PO DAILY vitamin B complex Tablet 1 tab PO DAILY fluoxetine 40 mg capsule 40 mg PO .morning Qty: 30 6RF Rx Instructions: Take one capsule every morning with 20 mg capsule, total dose 60 mg fluoxetine [Prozac] 20 mg capsule 20 mg PO .morning Qty: 30 6RF Rx Instructions: Take one capsule every morning with 40 mg capsule, total dose 60 mg hydroxyzine HCl 25 mg tablet 25 mg PO BEDTIME PRN (Reason: anxiety) Qty: 30 3RF Rx Instructions: May take one tablet at bedtime as needed for anxiety dextroamphetamine-amphetamine [Adderall XR] 30 mg capsule,extended release 24hr 60 mg PO QAM 30 Days Qty: 60 0RF Rx Instructions: Take two capsules every morning cyclobenzaprine 10 mg tablet 10 mg PO BEDTIME PRN (Reason: MUSCLE SPASMS) hydrocodone-acetaminophen 10-325 mg tablet 1 tab PO Q8H PRN (Reason: Pain, Moderate) levothyroxine 50 mcg tablet 50 mcg PO QAM pregabalin 75 mg capsule 75 mg PO Q12H cimetidine 300 mg tablet 300 mg PO DAILY meloxicam 15 mg tablet 15 mg PO DAILY PRN (Reason: Pain) Discharge Orders: Discharge ED (Routine); Ordered 08/21/24 Ordered By: Braxton Viveros Referrals: ANUM BURDEN MD [Primary Care Provider] - Discharge Diet: Usual diet Discharge Activity: Resume usual activity Patient Instructions: Opioid Safety, Pain Management Activity Restrictions/Additional Instructions: Thank you for choosing [facility] for your healthcare needs today. It is very important that you follow up as instructed or that you return to the Emergency Department should you have concerns or if your condition changes or worsens in any way. You were seen today after a syncopal episode. While your orthostatics here were normal your blood pressure was slightly low. CT of the head was negative. You had mentioned to the previous MRI you had and there was concern about benign intracranial hypertension. Would recommend you follow-up with neurology as planned for that while there are medications that can be given for that they would likely further lower your blood pressure and may precipitate more issues. We did treat your headache with medications here you can use Tylenol or Benadryl or Motrin as needed if headache persists. Stand Alone Forms: Work/School Release Print Language: Belarusian Coding Level of Care Code ED [employer] Developer for Melissa John
--- NOTE | 2024-08-21 08:03 | CT_ITS ---
WS: [id number] CT HEAD NONCONTRAST HISTORY: Benign intracranial hypertension, worsening headaches TECHNIQUE: Contiguous axial imaging performed through the brain. Bone and soft tissue windows. Sagittal and coronal reformats reviewed. All CT scans at [facility] use at least one of these dose optimization techniques: automated exposure control; mA and/or kV adjustment per patient size (includes targeted exams where dose is matched to clinical indication); or iterative reconstruction. DLP: 1071.48 mGy.cm COMPARISON: None available. No acute intracranial hemorrhage, midline shift or mass effect. No atrophy or prior infarcts or herniation. Ventricles: Normal size with no hydrocephalus. Paranasal sinuses: As visualized are clear. Mastoid air cells: Well pneumatized. Calvarium and scalp: Skull is intact with no soft tissue edema or swelling. CT/CT head wo con* [id number] IMPRESSION: Negative head CT.
[2024-08-21 08:11] LABS: Basophils % 0.4 %; Eosinophils # 0.1 10^3/uL (0.0-0.8); Eosinophils % 1.1 %; Hematocrit 42.2 % (36-47); Lymphocytes # 1.9 10^3/uL (0.8-4.8); Lymphocytes % 26.3 %; Mean Corpuscular HGB Conc 32.7 g/dL (30-55); Mean Corpuscular Hemoglobin 29.8 pg (27-33); Mean Corpuscular Volume 91.1 fl (85-98); Mean Platelet Volume 9.8 fL (7.4-10.4); Monocytes # 0.6 10^3/uL (0.2-0.9); Monocytes % 8.5 %; Neutrophils # 4.69 10^3/uL (1.8-7.7); Neutrophils % 63.4 %; Nucleated Red Blood Cells % 0 %; Platelet Count 321 10^3/cmm (157-399); Red Blood Count 4.63 10^6/uL (3.85-5.65); Red Cell Distribution Width 13.4 % (12.1-15.1); White Blood Count 7.39 10^3/uL (3.29-11.43)
[2024-08-21 08:31] LABS: HCG, Serum Qual Negative (Negative)
[2024-08-21 08:37] LABS: Alanine Aminotransferase 22 U/L (0-33); Alkaline Phosphatase 78 U/L (35-105); Anion Gap 15.9 (5-19); Aspartate Amino Transferase 19 U/L (0-32); Blood Urea Nitrogen 10 mg/dL (6-20); Calcium 9.1 mg/dL (8.5-10.5); Carbon Dioxide 29 mmol/L (22-29); Chloride 105 mmol/L (98-107); Creatinine Clr Calc Pharmacy 83.3342; Globulin 3.1 g/dL (1.3-4.6); Glomerular Filtration Rate 70.1 mL/min (90-130); Glucose 117 mg/dL (65-115); Osmolality Calculated 300 mOsm/kg (285-295); Potassium 4.9 mmol/L (3.5-5.1); Sodium 145 mmol/L (136-145); Total Bilirubin 0.3 mg/dL (0.15-1.2); Total Protein 7.1 g/dL (6.6-8.7)
[2024-08-21 09:20] VITALS: BP 127/74; PULSE 66; RESP 16; O2SAT 99
[2024-08-21 09:32] VITALS: BP 119/75; BP 128/83; BP 131/76; PULSE 65; PULSE 79; PULSE 81
[2024-08-21 09:57] LABS: Bilirubin Urine Negative (Negative); Blood Urine Negative (Negative); Glucose Urine UA Negative (Normal); Ketones Urine Negative (Negative); Leukocyte Esterase Urine 1+ (Negative); Nitrate Urine Negative (Negative); Protein Urine Negative (Negative); Specific Gravity, Urine 1.016 (1.005-1.030); Urine Appearance Clear (CLEAR); Urine Color Yellow (Yellow); Urobilinogen Urine 0.2 mg/dL (Negative)
[2024-08-21 10:21] LABS: Add Urine Microscopic? YES; Bacteria Urine TRACE /hpf; Hyaline Casts Urine 0-4 /lpf; RBC Urine 0-4 /hpf (0-2); UA Manual Slide Review YES; UA Slide Review UA Slide Review Perf
[2024-08-21] MEDS: ketorolac 30 mg/mL INJ IVP (10:43)
[2024-08-21 10:48] VITALS: BP 118/81; PULSE 63; RESP 15; O2SAT 100
[2024-08-21] MEDS: prochlorperazine 10 mg/2 mL Inj IVP (10:49)
[2024-08-21 11:09] VITALS: BP 108/72; PULSE 79; RESP 19; O2SAT 96
[2024-08-21 11:20] VITALS: BP 108/72; PULSE 78; RESP 16; O2SAT 96
== END 2024-08-21 11:20 | disposition home or self-care (01) ==
PROVIDERS: Emergency Provider Family Medicine; PCP Family Medicine
DX: I95.1 Orthostatic hypotension (principal); R51.9 Headache, unspecified; I10 Essential (primary) hypertension
CPT/HCPCS: 36415; 70450; 80053; 81001; 84703; 85025; 93005; 96374; 96375; 99285; J0780; J1885

== ENCOUNTER 2024-12-26 17:13 | Outpatient (CLI) | payer OTHER, SELFPAY ==
[2024-12-26 17:42] LABS: Hematocrit 37.1 % (36-47); Hemoglobin 12.20 g/dL (11.27-16.99); Mean Corpuscular HGB Conc 32.9 g/dL (30-55); Mean Corpuscular Hemoglobin 29.5 pg (27-33); Mean Corpuscular Volume 89.6 fl (85-98); Nucleated Red Blood Cells % 0 %; Platelet Count 263 10^3/cmm (157-399); Red Blood Count 4.14 10^6/uL (3.85-5.65); White Blood Count 8.09 10^3/uL (3.29-11.43)
[2024-12-26 18:03] LABS: Alanine Aminotransferase 18 U/L (0-33); Albumin Level 4.1 g/dL (3.5-5.2); Alkaline Phosphatase 81 U/L (35-105); Anion Gap 15.6 (5-19); Aspartate Amino Transferase 14 U/L (0-32); Blood Urea Nitrogen 12 mg/dL (6-20); Calcium 8.4 mg/dL (8.5-10.5); Carbon Dioxide 20 mmol/L (22-29); Chloride 111 mmol/L (98-107); Globulin 2.8 g/dL (1.3-4.6); Glucose 103 mg/dL (65-115); Osmolality Calculated 296 mOsm/kg (285-295); Potassium 3.6 mmol/L (3.5-5.1); Sodium 143 mmol/L (136-145); Total Protein 6.9 g/dL (6.6-8.7)
[2024-12-26 19:22] LABS: INR 0.89 (0.8-1.2); Partial Thromboplastin Time 25.7 SECONDS (23.9-36.7); Prothrombin Time 12.60 SECONDS (12.1-14.9)
[2024-12-26 20:27] LABS: Fibrinogen 403 mg/dL (174-498)
== END 2024-12-26 17:14 | disposition home or self-care (01) ==
PROVIDERS: PCP Family Medicine; Visit Provider Family Medicine
DX: R23.3 Spontaneous ecchymoses (principal)
CPT/HCPCS: 36415; 80053; 85025; 85240; 85245; 85246; 85384; 85610; 85730